=== PATIENT | female | born 1975 | race Caucasian/White ===

== ENCOUNTER 2017-07-12 09:51 | Day surgery (SDC) | payer MEDICAID ==
[~2017-07-12 09:51] MED LIST: ACETAMINOPHEN 1,000 MG/100 ML BTL IV ONE; CLINDAMYCIN 600MG/50ML PREMIX 600 MG/50 ML BAG IVPB ONE; FAMOTIDINE 20MG TABLET PO ONE; METOCLOPRAMIDE 10 MG TABLET PO ONE
[2017-07-12] MEDS ORDERED: LIDOCAINE 2% MDV (20MG/ML) 20ML VIAL IV ONE (09:52)
[2017-07-12] MEDS ORDERED: PROPOFOL 10 MG/ML VIAL IV ONE (09:52)
[2017-07-12] MEDS ORDERED: BUPIVACAINE 0.25% W/EPI MPF 30ML VIAL IVP ONE (09:52)
[2017-07-12] MEDS ORDERED: SCOPOLAMINE 1 PATCH TDSY TD ONE (09:52)
[2017-07-12] MEDS ORDERED: FENTANYL PF 100MCG/2ML VIAL IV ONE (09:52)
[2017-07-12] MEDS ORDERED: ONDANSETRON HCL IV 4 MG/2 ML VIAL IVP ONE (09:52)
[2017-07-12] MEDS ORDERED: MIDAZOLAM HCL 2MG/2ML VIAL IV ONE (09:52)
--- NOTE | 2017-07-14 07:21 | Operative Note ---
DATE OF SURGERY: 07/12/2017 Surgeon: Vishal Islas DO PREOPERATIVE DIAGNOSIS: Right gluteal mass. POSTOPERATIVE DIAGNOSIS: Right gluteal mass. OPERATION: Excision of right gluteal mass. Indication: The patient is a 41-year-old female who has had a developing enlarging right gluteal mass for quite some time. We did discuss excision; risks, benefits, and alternatives. PROCEDURE: Thereafter, consent was signed and questions answered. The patient was taken to the operating room and placed in the left lateral position. The gluteal region was prepped and draped in the usual fashion. The area around the mass was anesthetized with a total of 10 mL of 0.25% Sensorcaine with epinephrine. An elliptical incision was made and carried down to the subcutaneous tissue. This was then fully dissected free from the surrounding tissue with cautery. This was passed off the field. The wound was closed with 3-0 and 4-0 Vicryl. She was taken to the recovery room in satisfactory condition. FINDINGS AT THE TIME OF SURGERY: Right gluteal mass about 4 cm in the subcu. MTDD
== END 2017-07-12 11:20 | disposition home or self-care (01) ==
LOC: SUR 09:51
PROVIDERS: ATTEND Surgery
DX: D17.1 Benign lipomatous neoplasm of skin and subcutaneous tissue of trunk (principal)
CPT/HCPCS: 00300; 11404; 12032; J2405; J3010